=== PATIENT | male | born 1965 | race Caucasian/White ===

== ENCOUNTER 2017-08-01 09:35 | Emergency (ER) | payer MEDICAID ==
[~2017-08-01] VITALS: Ht 188 cm; Wt 102.1 kg
[2017-08-01 09:49] VITALS: BP 128/80
[2017-08-01] MEDS ORDERED: PERMETHRIN60 GM TOPIC (09:54)
--- NOTE | 2017-08-01 10:14 | Emergency Room Report ---
History of Present Illness General Chief Complaint: Skin Rash/Abscess Source: Patient Present Illness HPI 52-year-old male no significant past medical history presenting with rash on abdomen arms hands legs for one month. Patient states that he has been taking hydroxyzine and Benadryl not relieving the itching. No fever no chills. Rash is limited to skin and does not involve mucosal surfaces. severe itchiness, no pain. Denies fever or chills, throat swelling, sob. No n/v/d. No new detergents, no exposure to outside grass/plants/poison sharif, no new pets. There has been no new medication use. This is the first time patient has experienced this rash. Allergies: Coded Allergies: No Known Allergies (Unverified , 08/01/17) Patient History Past Medical History: see triage record Past Surgical History: none Pertinent Family History: none Reviewed Nursing Documentation: PMH: Agreed, PSxH: Agreed Nursing Documentation-PMH Past Medical History: No Stated History Review of Systems All Other Systems: negative except mentioned in HPI Physical Exam Vital Signs Date Time Temp Pulse Resp B/P (MAP) Pulse Ox O2 Delivery O2 Flow Rate FiO2 08/01/17 09:44 98.1 81 16 128/80 98 Room Air Sp02 EP Interpretation: reviewed, normal General Appearance: normal inspection, well appearing, no apparent distress, alert, GCS 15, non-toxic Head: normocephalic, atraumatic Eyes: bilateral eye normal inspection, bilateral eye PERRL, bilateral eye EOMI ENT: normal ENT inspection, normal pharynx, normal voice, moist mucus membranes Neck: normal inspection, full range of motion, supple Respiratory: normal inspection, lungs clear, normal breath sounds, no respiratory distress, no retraction, no wheezing, speaking full sentences, chest symmetrical Cardiovascular #1: normal inspection, regular rate, rhythm, no edema, normal capillary refill Cardiovascular #2: 2+ radial (R), 2+ radial (L) Gastrointestinal: normal inspection, non tender, soft, non-distended, no guarding Genitourinary: no CVA tenderness Musculoskeletal: normal inspection, back normal, normal range of motion, non- tender Neurologic: normal inspection, alert, oriented x3, responsive, motor strength/ tone normal, sensory intact, normal gait, speech normal Psychiatric: normal inspection, judgement/insight normal, memory normal Skin: warm/dry, well hydrated, normal turgor, other - scabbed rash noted on ext , abd, interwebbs of fingers Medical Decision Making Diagnostic Impression: Primary Impression: Scabies ER Course 52-year-old male rash on body for one month DDX: Appears to be scabies no cellulitis Plan: None emergency room ER course: Patient has remained stable in ED Disposition: Patient will be discharged to home. Patient given prescription of permethrin cream. Strict return precautions discussed with patient such as fever, chills, rapid spread of rash, chest pain, sob, throat swelling, n/v/d. Patient is to follow up with their PMD within 5 days. Patient verbalized understanding and agrees with plan. Please note that this Emergency Department Report was dictated using [employer] technology software, occasionally this can lead to erroneous entry secondary to interpretation by the dictation equipment Last Vital Signs Date Time Temp Pulse Resp B/P (MAP) Pulse Ox O2 Delivery O2 Flow Rate FiO2 08/01/17 09:49 98.1 72 16 128/80 98 Room Air Disposition: HOME, SELF-CARE Condition: Stable Scripts Permethrin* (ELIMITE*) 60 Gm Cream..g. 1 APPLIC TOPIC ONCE, #60 GM 0 Refills Apply cream from head to toe; leave on for 8-14 hours before washing off with water; may reapply in 1 week if live mites appear. Prov: Senait Tabares M.D. 08/01/17 Patient Instructions: Scabies, Pediatric Additional Instructions: Please followup with your primary care doctor in one week Please see attached information from up to date about scabies Senait Tabares M.D. Aug 01, 2017 10:14
[2017-08-01 10:38] VITALS: BP 128/80
== END 2017-08-01 10:40 | disposition home or self-care (01) ==
LOC: EMR 09:50
DX: B86 Scabies (principal)
CPT/HCPCS: 99283

== ENCOUNTER 2017-08-06 09:53 | Emergency (ER) | payer MEDICAID ==
[~2017-08-06] VITALS: Ht 182.9 cm; Wt 103.4 kg
[~2017-08-06 09:53] MED LIST: PERMETHRIN60 GM TOPIC
[2017-08-06 10:10] VITALS: BP 118/71
[2017-08-06] MEDS ORDERED: DIPHENHYDRAMINE25 M1 ORAL (10:39)
[2017-08-06] MEDS ORDERED: PERMETHRIN60 GM TOPIC (10:39)
[2017-08-06] MEDS ORDERED: PREDNISONE20 MG ORAL (10:39)
[2017-08-06 10:42] VITALS: BP 118/71
--- NOTE | 2017-08-06 15:39 | Emergency Room Report ---
History of Present Illness General Chief Complaint: Skin Rash/Abscess Source: Patient Present Illness HPI 52-year-old male presents ED complaining of rash. Patient was seen here last week for the same rash was noted at scabies. Patient was prescribed permethrin cream and states it did help however patient still notes some itchiness still. States he may need another dose of medication. Denies any pain. Denies any fevers or chills. No other aggravating relieving factors. Denies any other associated symptoms Allergies: Coded Allergies: No Known Allergies (Unverified , 08/01/17) Patient History Past Medical History: none Past Surgical History: none Pertinent Family History: none Social History: Denies: smoking, alcohol use, drug use Immunizations: UTD Reviewed Nursing Documentation: PMH: Agreed, PSxH: Agreed Nursing Documentation-PMH Past Medical History: No Stated History Review of Systems All Other Systems: negative except mentioned in HPI Physical Exam Vital Signs Date Time Temp Pulse Resp B/P (MAP) Pulse Ox O2 Delivery O2 Flow Rate FiO2 08/06/17 10:10 98.1 60 20 118/71 97 Room Air Sp02 EP Interpretation: reviewed, normal General Appearance: no apparent distress, alert, GCS 15, non-toxic Head: normocephalic Eyes: bilateral eye normal inspection, bilateral eye PERRL ENT: normal ENT inspection Neck: normal inspection Respiratory: normal inspection Cardiovascular #1: normal inspection Gastrointestinal: normal inspection Rectal: deferred Genitourinary: no CVA tenderness Musculoskeletal: normal inspection Neurologic: alert, oriented x3, responsive, motor strength/tone normal, sensory intact, speech normal Psychiatric: normal inspection Skin: rash - linear excoriations to hands/ inner groin Lymphatic: normal inspection Medical Decision Making Diagnostic Impression: Primary Impression: Scabies ER Course Hospital Course 52-year-old male presents to ED with rash Differential diagnoses include: Cellulitis, dermatitis, insect bite, abscess Clinical course Patient placed on stretcher. After initial history, physical exam reveals a middle aged male in no acute distress. On exam there are multiple linear excoriations noted to the hands and feet and to the inner groin area Consistent with scabies. We'll prescribe one more round of medication. Also will prescribe prednisone and Benadryl Diagnosis - scabies stable and discharged to home with prescription for permethin, prednisone, benedryl. Instructed to followup with PMD. Instructed return to ED if symptoms recur or worsen Last Vital Signs Date Time Temp Pulse Resp B/P (MAP) Pulse Ox O2 Delivery O2 Flow Rate FiO2 08/06/17 10:42 98.1 60 20 118/71 97 Room Air Status: improved Disposition: HOME, SELF-CARE Condition: Stable Scripts Diphenhydramine Hcl* (DIPHENHYDRAMINE HCL*) 25 Mg Capsule 25 MG ORAL Q6H Y for Itching, #30 CAP 0 Refills Prov: HEATHER CHILDS M.D. 08/06/17 Prednisone* (PREDNISONE*) 20 Mg Tablet 40 MG ORAL DAILY, #10 TAB Prov: HEATHER CHILDS M.D. 08/06/17 Permethrin* (ELIMITE*) 60 Gm Cream..g. 1 APPLIC TOPIC ONCE, #1 TUBE 0 Refills Apply cream from head to toe; leave on for 8-14 hours before washing off with water Prov: HEATHER CHILDS M.D. 08/06/17 Referrals: MIRTHA JAEGER (PCP) Patient Instructions: Contact Precautions, [id number] HEATHER CHILDS M.D. Aug 06, 2017 15:39
== END 2017-08-06 10:42 | disposition home or self-care (01) ==
LOC: EMR 10:27
DX: B86 Scabies (principal)
CPT/HCPCS: 99283